=== PATIENT | female | born 1955 | race Asian ===

== ENCOUNTER 2018-08-31 04:41 | Observation (INO) | payer OTHER ==
[2018-08-31] MEDS ORDERED: Albuterol/Ipratropium NEB.SOL* Albuterol 2.5 MG/Ipratropium 0.5 MG 3 ML INH ONE (04:47)
[2018-08-31] MEDS ORDERED: methylPREDNISolone 125 MG* 2 ML VIAL IV ONE (04:48)
[2018-08-31] MEDS ORDERED: Magnesium Sulfate 2 GM IV* 2 GM/50 ML BAG IVPB ONE (04:48)
--- NOTE | 2018-08-31 05:00 | ED ---
Respiratory - HPI Summary HPI Summary: This patient is a 62 year old F brought in by ambulance to [facility] accompanied by a machine welt butter that speaks Czech with a chief complaint of asthma attack that began tonight as she was sleeping on the couch. The patient does not speak any Mohawk and only speaks Czech. The patient rates the pain 10/10 in severity. Patient reports SCHILLING, coughing, myalgia, and rhinorrhea that began 3 days ago. Patient denies fever, chills, CP, and ABD pain. Hx asthma. No medications. photography editor was used. - History of Current Complaint Stated Complaint: SOB Time Seen by Provider: 08/31/18 04:45 Hx Obtained From: Patient, Habilitation Specialist Onset/Duration: Still Present Timing: Constant Initial Severity: Severe Current Severity: Severe Pain Intensity: 10 Character: Cough (Nonproductive) Associated Signs and Symptoms: Negative - fever, chills, CP, and ABD pain - Allergy/Home Medications Allergies/Adverse Reactions: Allergies Allergy/AdvReac Type Severity Reaction Status Date / Time No Known Allergies Allergy Verified 04/30/18 16:59 PMH/Surg Hx/FS Hx/Imm Hx Endocrine/Hematology History: Reports: Hx Diabetes - But states it's no longer a problem, and takes no med for it Cardiovascular History: Reports: Hx Hypertension, Other Cardiovascular Problems/ Disorders - fast heartrate Denies: Hx Cardiac Arrest Respiratory History: Reports: Hx Asthma Comment Only: Other Respiratory Problems/Disorders - DOCTOR WANTS TO LOOK FOR PNEUMONIA GI History: Reports: Other GI Disorders - Pt reports daily heartburn Sensory History: Denies: Hx Contacts or Glasses, Hx Deafness, Hx Hearing Aid Opthamlomology History: Denies: Hx Contacts or Glasses Neurological History: Reports: Hx Headaches, Other Neuro Impairments/Disorders - reports occasional dizziness Psychiatric History: Denies: Hx Oppositional Crane Disorder, Hx Inpatient Treatment Infectious Disease History: No Infectious Disease History: Denies: Hx Hepatitis, Traveled Outside the [place] in Last 30 Days - Family History Known Family History: Positive: Unknown - she has no contact with her family, is unaware of medical issues - Social History Alcohol Use: None Substance Use Type: Reports: None Hx Tobacco Use: Yes Smoking Status (MU): Current Every Day Smoker Type: Cigarettes Amount Used/How Often: 1 cigarette a day Review of Systems Negative: Fever, Chills Positive: Nasal Discharge Negative: Chest Pain Positive: Cough, Other - asthma attack Negative: Abdominal Pain Positive: Myalgia Positive: Headache All Other Systems Reviewed And Are Negative: Yes Physical Exam - Summary Physical Exam Summary: VITAL SIGNS: Reviewed. GENERAL: Patient is a well-developed and nourished female who is lying comfortable in the stretcher. Patient is not in any acute respiratory distress. HEAD AND FACE: No signs of trauma. No ecchymosis, hematomas or skull depressions. No sinus tenderness. EYES: PERRLA, EOMI x 2, No injected conjunctiva, no nystagmus. EARS: Hearing grossly intact. Ear canals and tympanic membranes are within normal limits. MOUTH: Oropharynx within normal limits. NECK: Supple, trachea is midline, no adenopathy, no JVD, no carotid bruit, no c- spine tenderness, neck with full ROM. CHEST: Symmetric, no tenderness at palpation LUNGS:. Bilateral inspiratory and expiratory wheezes CVS: Regular rate and rhythm, S1 and S2 present, no murmurs or gallops appreciated. ABDOMEN: Soft, non-tender. No signs of distention. No rebound no guarding, and no masses palpated. Bowel sounds are normal. EXTREMITIES: FROM in all major joints, no edema, no cyanosis or clubbing. NEURO: Alert and oriented x 3. No acute neurological deficits. Speech is normal and follows commands. SKIN: Dry and warm Triage Information Reviewed: Yes Vital Signs On Initial Exam: Initial Vitals Temp Pulse Resp BP Pulse Ox 98.3 F 95 24 149/91 97 08/31/18 04:43 08/31/18 04:43 08/31/18 04:43 08/31/18 04:43 08/31/18 04:43 Vital Signs Reviewed: Yes Diagnostics - Vital Signs Vital Signs Temp Pulse Resp BP Pulse Ox 08/31/18 04:43 98.3 F 95 24 149/91 97 - Laboratory Result Diagrams: 08/31/18 05:00 08/31/18 05:10 Lab Statement: Any lab studies that have been ordered have been reviewed, and results considered in the medical decision making process. - Radiology CXR Radiology Interpretation Completed By: ED Physician Summary of Radiographic Findings: bilateral interstitial infiltrated consistent with bilateral congestion. Pending official report. - EKG 0449 Cardiac Rate: NL EKG Rhythm: Sinus Rhythm - at 94 BPM Summary of EKG Findings: Normal axis. Normal interval. No ischemic changes Disposition - Course Assessment/Plan: This patient is a 62 year old F brought in by ambulance to [facility] accompanied by a machine welt butter that speaks Czech with a chief complaint of asthma attack that began tonight as she was sleeping on the couch. The patient does not speak any Mohawk and only speaks Czech. The patient rates the pain 10/10 in severity. Patient reports SCHILLING, coughing, myalgia, and rhinorrhea that began 3 days ago. Patient denies fever, chills, CP, and ABD pain. Hx asthma. No medications. An EKG reveals Normal axis. Normal interval. No ischemic changes. CXR reveals, bilateral interstitial infiltrated consistent with bilateral congestion. Pending official report. Blood work obtained. In the ED course the patient was given lasix and breathing treatment. We discussed patient care with Dr. Mendez and he has accepted the patient for admission. Patient will be admission. The patient is agreeable with this plan. - Diagnoses Provider Diagnoses: Asthma - Physician Notifications Discussed Care Of Patient With: Carroll Mendez Time Discussed With Above Provider: 06:04 Instructed by Provider To: Admit As Inpatient Discharge - Sign-Out/Discharge Documenting (check all that apply): Patient Departure - admitted - Discharge Plan Condition: Fair Disposition: ADMITTED TO [facility] Referrals: Blue Lucas MD [Primary Care Provider] - - Attestation Statements Document Initiated by Scribe: Yes Documenting Scribe: Paresh Fontenot Provider For Whom Scribe is Documenting (Include Credential): Kate Lake MD Scribe Attestation: Paresh Valente scribed for Kate Lake MD on 08/31/18 at 0604. Status of Scribe Document: Ready
[2018-08-31] MEDS ORDERED: Albuterol 2.5 MG/3 ML NEB.SOL* (0.083%) INH ONE (05:04)
[2018-08-31] MEDS: Albuterol 2.5 MG/3 ML NEB.SOL* (0.083%) INH SCH ×2 (05:18→05:28)
[2018-08-31 05:25] LABS: ABS Basophils 0.1 10^3/ul (0-0.2); ABS Lymphocytes 3.3 10^3/ul (1.0-4.8); ABS Monocytes 0.9 10^3/ul (0-0.8); ABS Neutrophils 3.1 10^3/ul (1.5-7.7); ABS Nucleated RBC 0 10^3/ul; Eosinophil % 12.3 %; Hematocrit 41 % (35-47); Hemoglobin 13.1 g/dl (12.0-16.0); Lymphocyte % 39.5 %; Mean Corpuscular HGB Conc 32 g/dl (31-36); Mean Corpuscular Hemoglobin 27 pg (27-31); Mean Corpuscular Volume 85 fL (80-97); Mean Platelet Volume 7.9 fL (7.4-10.4); Nucleated Red Blood Cells % 0.1; Platelet Count 263 10^3/ul (150-450); Red Blood Count 4.84 10^6/ul (4.00-5.40); Red Cell Distribution Width 14 % (10.5-15); White Blood Count 8.3 10^3/ul (3.5-10.8)
[2018-08-31 05:33] LABS: Activated Partial Thrombo Time 34.2 seconds (26.0-36.3); INR 0.89 (0.77-1.02)
[2018-08-31] MEDS ORDERED: Furosemide IV* 10 MG/ML VIAL (40 MG) IV ONE (05:37)
[2018-08-31 05:43] LABS: Albumin 3.8 g/dL (3.2-5.2); Albumin/Globulin Ratio 1.2 (1-3); BUN/Creatinine Ratio 12.8 (8-20); C Reactive Protein 4.31 mg/L (<8.01); Calcium 9.3 mg/dL (8.6-10.3); EGFR Non-African American 75.1 (>60); Globulin 3.2 g/dL (2-4); Total Bilirubin 0.4 mg/dL (0.2-1.0)
[2018-08-31] MEDS ORDERED: Albuterol/Ipratropium NEB.SOL* Albuterol 2.5 MG/Ipratropium 0.5 MG 3 ML INH PRN (09:13)
[2018-08-31] MEDS ORDERED: Pneumococcal *Vac Polyvalent 0.5 ML VIAL IM ONE (10:00)
[2018-08-31] MEDS ORDERED: Albuterol/Ipratropium NEB.SOL* Albuterol 2.5 MG/Ipratropium 0.5 MG 3 ML INH SCH (10:00)
[2018-08-31] MEDS: Mometasone/Formoter 200/5 MDI INH SCH ×2 (11:08→19:43)
[2018-08-31] MEDS: PTO: Umeclidinium 62.5 MDI(NF) MDI INH SCH (11:10)
[2018-08-31] MEDS: Azithromycin IV(*) 500 MG in NS 0.9% 250 ML* 250 ML IVPB SCH (11:19)
--- NOTE | 2018-08-31 14:17 | HP ---
HISTORY AND PHYSICAL: DATE OF ADMISSION: 08/31/18 ADMITTING PROVIDER: Bne Jean Baptiste MD PRIMARY CARE PROVIDER: Dr. Ankush Edge. OUTPATIENT DIVERSIFIED CROPS I FARMWORKER: Dr. Blue Lucas. CHIEF COMPLAINT: Shortness of breath, productive cough, body aches, low back pain. HISTORY OF PRESENT ILLNESS: Mayuri Tang is a 62-year-old Kyr[place] female with past medical history significant for asthma (? COPD), who ran out of one of her "blue" inhalers 2 days prior to admission, likely albuterol. She has been complaining of increased shortness of breath and a yellow brownish productive cough for approximately 4 days. She called EMS, was found to be tripoding, was tachypneic; got albuterol and Atrovent inhalers with improved saturations and was presented to the [facility], where she got Solu-Medrol 125, 2mg of magnesium, albuterol, 40mg IV Lasix. She was referred to hospitalist service for suspected acute asthma versus COPD exacerbation. She denies any chest pain. She is a [place] and a video railroad car letterer was used throughout H&P but history was still difficult given her being a poor historian. She denied any fevers, attested to increased body aches in her lower back. She was unable to tell me who her PCP was but through outpatient records, she saw Dr. Edge on 07/08/18, was referred to Dr. Oliva for concern for a skin lesion of the left medial ankle. At that time, she was listed to be on Ventolin 2 puffs every 6 hours, Breo-Ellipta, Incruse Ellipta, ferrous sulfate and docusate. She denies being able to take any pills because she does not have access to them currently. PAST MEDICAL HISTORY: Asthma (?COPD), no PFTs available, current smoker. MEDICATIONS: 1. Incruse Ellipta 62.5 mcg, inhale one puff everyday (in room with her). She is unable to state her other medications but per Dr. Edge's records, they included: 2. Ventolin HFA 108 (90 base) mcg 2 puffs every 6 hours. 3. Breo-Ellipta 200/25 mcg, inhale one puff everyday. 4. ferrous sulfate 325 mg daily (not taken recently) 5. Docusate 100 mg by mouth twice a day (not taken recently) ALLERGIES: No known drug allergies. FAMILY HISTORY: She states that her parents are both , but cannot tell anything more. SOCIAL HISTORY: The patient started smoking at age 8 and at periods of time smokes "heavily" but currently smokes approximately 1 cigarette a day. Denies drug or alcohol use. She lives with her friends, has no family. Previously she was desired to have Jow Markell to be her medical surrogate, though currently I guess they just had a child and may be otherwise indisposed; she desires to be a full code. REVIEW OF SYSTEMS: A complete 14-point review of systems negative except as per HPI. She is complaining of dizziness. Denies any chest pain or abdominal pain. Has a left palm and wrist rash. PHYSICAL EXAMINATION GENERAL APPEARANCE: Initially asleep, lying on hospital bed. VITAL SIGNS: Temperature 98.2; pulse rate 103, currently 98; respiratory rate 24, currently 20; saturating 96% on room air; blood pressure 149/91, currently 125/97. HEENT: Normocephalic, atraumatic. Pupils are equal, round and reactive to light. Extraocular motions intact. No scleral icterus. NECK: Supple. No cervical lymphadenopathy. LUNGS: With expiratory wheezing, no rhonchi or rales. CARDIOVASCULAR: Tachycardic, regular rate. No murmurs, rubs or gallops. ABDOMEN: Soft, slightly distended, nontender. EXTREMITIES: Warm, well perfused. No peripheral edema. SKIN: There is a burn on her left medial distal forearm which is chronic. A silver patch 1.5 cm on her left proximal palm and smaller similar on the left wrist fold. Says these are pruritic. NEUROLOGIC: Moving all extremities. Cranial nerves II through XII intact. DIAGNOSTIC STUDIES/LAB DATA: White count 8.3, hemoglobin 13.1, hematocrit 41, platelets 263. INR 0.89. Sodium 139, potassium 4.0, chloride 105, carbon dioxide 28, BUN 10, creatinine 0.78, glucose 85, lactic acid 0.7, total bili 0.4 , AST 14, ALT 12, alk phos 63. Troponin 0.01, CRP 4.3, BNP 11. Albumin 3.8, total protein 7.0, influenza A and B rapids were both negative. Chest x-ray demonstrated no acute process. EKG normal sinus rhythm, normal axis, no ST elevations or depression. ASSESSMENT AND PLAN: Mayuri Tang is a 62-year-old female, long time smoking, carries a diagnosis of asthma but no PFTs are available. She has likely many pack year, starting at age 8 and current smoking. She presents with productive cough, shortness of breath, wheezing, tachypnea with suspected asthma/COPD exacerbation. She also in the setting of running out of her likely rescue or Breo-Ellipta inhalers for last 3 days. She cannot say who her PCP is but likely Dr. Edge. She is status post 125 mg of Solu-Medrol in the ED, and plan to give again 40 mg again at 1400 and q.12 hours thereafter, putting her on DuoNeb q.4 hours standing and q.2 hours p.r.n., putting her on (due to formulary change) Dulera, and continuing her long-acting anticholinergic Incruse -Ellipta which is in the room with her. We are requesting the records of Dr. Blue Lucas who is listed as her order picker (Recommend getting PFT records if available and should have done as outpatient if not). Put her on azithromycin 500 mg IV (would switch to p.o. as able) for 3 days for suspected likely COPD exacerbation component. Adding procalcitonin. She is otherwise afebrile, no leukocytosis. She will be put on heparin DVT prophylaxis. She can continue on unrestricted diet. She is a full code, otherwise surrogate is for now Geno Guillaume, [phone]. [id number]/[facility] #: [id number] [facility]
[2018-08-31] MEDS: Heparin VIAL(*) 5000 UNITS/ML VIAL (FIVE THOUSAND) SUBCUT SCH ×2 (14:38→21:00)
[2018-08-31] MEDS: Albuterol/Ipratropium NEB.SOL* Albuterol 2.5 MG/Ipratropium 0.5 MG 3 ML INH SCH ×3 (14:45→23:40)
[2018-08-31] MEDS: methylPREDNISolone SOD 40 MG* 1 ML VIAL IV SCH (16:13)
[2018-08-31] MEDS ORDERED: Senna TAB PO PRN (20:08)
[2018-08-31] MEDS ORDERED: Senna TAB ONE (20:56)
[2018-08-31] MEDS ORDERED: Docusate CAP* 100 MG ONE (20:58)
[2018-08-31] MEDS: Docusate CAP* 100 MG PO PRN (21:00)
[2018-09-01] MEDS: Albuterol/Ipratropium NEB.SOL* Albuterol 2.5 MG/Ipratropium 0.5 MG 3 ML INH SCH ×3 (04:00→11:14)
[2018-09-01] MEDS: methylPREDNISolone SOD 40 MG* 1 ML VIAL IV SCH ×2 (04:08→15:52)
[2018-09-01] MEDS: Heparin VIAL(*) 5000 UNITS/ML VIAL (FIVE THOUSAND) SUBCUT SCH ×2 (05:52→14:38)
[2018-09-01] MEDS: Docusate CAP* 100 MG PO PRN (05:52)
[2018-09-01] MEDS: Mometasone/Formoter 200/5 MDI INH SCH (07:17)
[2018-09-01] MEDS: PTO: Umeclidinium 62.5 MDI(NF) MDI INH SCH (07:17)
[2018-09-01] MEDS: Azithromycin IV(*) 500 MG in NS 0.9% 250 ML* 250 ML IVPB SCH (11:08)
[2018-09-01 12:21] VITALS: BP 108/64
[2018-09-01] MEDS ORDERED: Albuterol/Ipratropium NEB.SOL* Albuterol 2.5 MG/Ipratropium 0.5 MG 3 ML INH SCH (13:00)
--- NOTE | 2018-09-01 21:20 | DS ---
CC: Dr. Ankush Edge * DISCHARGE SUMMARY: DATE OF ADMISSION: 08/31/18 DATE OF DISCHARGE: 09/01/18 PRIMARY CARE PROVIDER: Dr. Ankush Edge. ATTENDING PHYSICIAN: Dr. Natalie Brandt * (dictated by Evelyn Villalta NP). PRIMARY DIAGNOSIS: Chronic obstructive pulmonary disease exacerbation. STUDIES WHILE IN THE HOSPITAL: 1. Chest x-ray on 08/31/18 reads as no active cardiopulmonary disease. 2. EKG on 08/31/18 shows normal sinus rhythm with a rate of 94, QTc 451. No ischemic changes. HISTORY OF PRESENT ILLNESS AND HOSPITAL COURSE: Ms. Tang is a 62-year-old female with past medical history of asthma and/or COPD, who presented to the emergency room on 08/31/18 with shortness of breath, cough and body aches. Please see the history and physical by Dr. Jean Baptiste for a complete summary of the events leading up to this hospitalization. The patient reports that she ran out of one of her inhalers at home. It was believed that this was her albuterol inhaler. She had increased shortness of breath with yellow-brown sputum for approximately 4 days. She called EMS and was found to be tachypneic and tripoding. In the emergency room, she was given Solu-Medrol and Lasix. She did have a negative influenza A and influenza B swab. Because of the concern for COPD/asthma exacerbation, the patient was admitted via the hospitalist service. The patient had an uneventful night and as of this morning has been up ambulating around the unit without any oxygen. She is satting 93% while ambulating on room air. We did request records from her previous network solutions architect , although they were not able to be obtained. The patient's respiratory diagnoses are still unknown, although because of the hyperinflation noted on chest x-ray, I think this very likely represents COPD and therefore this would be a COPD exacerbation. She was placed on azithromycin and kept on Solu- Medrol. This morning, lung sounds are diminished throughout. There is no rhonchi or wheezing. She is anxious to return home. I did speak with her family members, who are also understanding of the discharge plan and are in agreement to taking her home. Vital signs have normalized and she has not displayed any further tachypnea or tachycardia. Ms. Tang is stable for discharge today. Vital signs are as follows: Temp 98.1 , heart rate 89, respiratory rate 16, oxygen saturation 93% on room air, blood pressure 108/64. DISCHARGE MEDICATIONS: New medications: 1. Azithromycin 250 mg p.o. daily x3 days. 2. Prednisone 10 mg tabs p.o. taper (take 4 tabs for 3 days, then 3 tabs for 3 days, then 2 tabs for 3 days, then 1 tab for 3 days). Continued medications: 1. Incruse Ellipta 62.5 mcg one puff daily. 2. Albuterol MDI 2 puffs q.6 hours p.r.n. shortness of breath. 3. Docusate 100 mg p.o. b.i.d. 4. Breo Ellipta MDI 200/25 one puff daily. DISCHARGE PLAN: Ms. Tang will be discharged home. Activity will be as tolerated. Diet will be regular as tolerated. I have prescribed her an additional 3 days of azithromycin to complete a total of 5 days of antibiotic therapy. I have also prescribed a 12-day prednisone taper, which she has been instructed to complete per label direction. I did provide her with 2 refills of her albuterol as it sounds as though this exacerbation was brought on by her lack of albuterol. She can continue her other usual medications. As per her family, she does not have a network solutions architect in this area, she had a network solutions architect previously in [place]. I have advised her that she should follow up with her primary care provider in 4 to 7 days and she may benefit from seeing a network solutions architect here in [place]. She has been advised to return to the emergency room or nearest hospital for any worsening of symptoms, shortness of breath, lightheadedness, dizziness, chest discomfort, high fevers, chills, night sweats , loss of consciousness, or any other worrisome signs or symptoms. This is a summarized report of a complex medical history and hospital stay. For further details, please see the entire medical record. TIME SPENT: Approximately 40 minutes was spent on this discharge. EVELYN VILLALTA, EVE [id number]/[facility] #: [id number] JEN
== END 2018-09-01 16:15 | disposition home or self-care (01) ==
LOC: ED 04:41 → SSU 08:02
PROVIDERS: ADMIT Internal Medicine; ATTEND Internal Medicine
DX: J44.1 Chronic obstructive pulmonary disease with (acute) exacerbation (principal); R51 Headache; F17.210 Nicotine dependence, cigarettes, uncomplicated; R06.02 Shortness of breath; R05 Cough; M54.5 Low back pain; R06.2 Wheezing
CPT/HCPCS: 36415; 71045; 80053; 83605; 83880; 84145; 84484; 85025; 85610; 85730; 86140; 86703; 87040; 90471; 90686; 90732; 93005; 94640; 96365; 96366; 96372; 96375; 99284; 99406; A9270-GY; G0008; G0378; J0456; J1644; J1940; J2920; J2930; J3475

== ENCOUNTER 2018-11-07 19:09 | Inpatient (IN) | payer OTHER ==
[2018-11-07] MEDS ORDERED: Albuterol 0.5% CONC NEB.SOL* 5 MG/ML 20 ml BOT INH ONE (19:11)
[2018-11-07] MEDS ORDERED: methylPREDNISolone 125 MG* 2 ML VIAL IV ONE (19:11)
[2018-11-07] MEDS ORDERED: NS 0.9% 1000 ML** 1,000 ML IV ONE (19:11)
--- NOTE | 2018-11-07 19:21 | ED ---
Respiratory - HPI Summary HPI Summary: This patient is a 63 year old F brought in by ambulance to ED accompanied by grandson with a chief complaint of difficulty breathing since 2 weeks ago. The patient only speaks Malaysian and the grandson translates for her. The grandson reports the patient has been having a cold with cough and wheezing for the past two weeks but the difficulty breathing worsened tonight. She has not seen her PCP for her sx. En route, EMS gave a duoneb and the patient reports she felt better since. The patient rates the pain 0/10 in severity. Symptoms aggravated by nothing. Symptoms alleviated by duoneb. Grandson reports non-productive cough. Grandson denies fever. PMHx of asthma (takes albuterol). Patient is an occasional smoker. - History of Current Complaint Stated Complaint: DIFFICULTY BREATHING PER EMS Hx Obtained From: Patient - only speaks Malaysian, Family/Air Brake Man - grandson is building materials sales attendant Onset/Duration: Gradual Onset - cold since 2 weeks ago but worsened tonight, Lasting Weeks, Still Present Timing: Constant Current Severity: None Character: Wheezing, Cough (Nonproductive) Sputum Amount: None Aggravating Factor(s): Nothing Alleviating Factor(s): Oxygen - duoneb given by EMS Associated Signs and Symptoms: SOB, Wheezing - Allergy/Home Medications Allergies/Adverse Reactions: Allergies Allergy/AdvReac Type Severity Reaction Status Date / Time No Known Allergies Allergy Verified 11/07/18 19:46 PMH/Surg Hx/FS Hx/Imm Hx Endocrine/Hematology History: Reports: Hx Diabetes - DX A COUPLE OF YEARS AGO Cardiovascular History: Reports: Hx Hypertension - UNSURE, Other Cardiovascular Problems/Disorders - fast heartrate Denies: Hx Cardiac Arrest Respiratory History: Reports: Hx Asthma, Hx Sleep Apnea - ?, Other Respiratory Problems/Disorders - hilar mass newly found 09/12/18- Denies: Hx Chronic Obstructive Pulmonary Disease (COPD) GI History: Reports: Hx Gastroesophageal Reflux Disease, Other GI Disorders - CONSTIPATION Musculoskeletal History: Reports: Hx Arthritis - KNEE, "CUFF" OF LEG Sensory History: Denies: Hx Contacts or Glasses, Hx Deafness, Hx Hearing Aid Opthamlomology History: Denies: Hx Contacts or Glasses Neurological History: Reports: Hx Headaches, Other Neuro Impairments/Disorders - reports occasional dizziness Psychiatric History: Reports: Hx Anxiety - HX OF -NO MEDICATION FOR Denies: Hx Oppositional [place] Disorder, Hx Inpatient Treatment - Surgical History Surgery Procedure, Year, and Place: EGD-08/2018-WITH SEDATION Hx Anesthesia Reactions: No Infectious Disease History: Denies: Hx Hepatitis, Hx Human Immunodeficiency Virus (HIV), Hx of Known/ Suspected MRSA, Hx Shingles, Hx Tuberculosis, History Other Infectious Disease - Family History Known Family History: Positive: Unknown - she has no contact with her family, is unaware of medical issues - Social History Alcohol Use: None Alcohol Amount: "CONFIRMED ALCOHOLIC"- STOPPED DRINKING >3 YEARS Substance Use Type: Reports: None Hx Tobacco Use: Yes Smoking Status (MU): Former Smoker Type: Cigarettes Amount Used/How Often: 2 ROLLS EACH DAY X 50+ YEARS Have You Smoked in the Last Year: Yes Review of Systems Negative: Fever Positive: Cough - non-productive, Other - wheezing, difficulty breathing All Other Systems Reviewed And Are Negative: Yes Physical Exam - Summary Physical Exam Summary: Appearance: Well-appearing, Well-nourished, lying in bed comfortably, female in moderate respiratory distress Skin: Warm, dry, no obvious rash Eyes: sclera anicteric, no conjunctival pallor ENT: mucous membranes moist, pharynx appears normal Neck: Supple, nontender Respiratory: Clear to auscultation, moderate respiratory distress, diffuse inspiratory and expiratory wheezing with diminished airation. Cardiovascular: Normal S1, S2. No murmurs. Normal distal pulses in tibial and radial bilaterally. Tachycardic but has normal heart sounds. Abdomen: Soft, nontender, normal active bowel sounds present Musculoskeletal: Normal, Strength/ROM Intact Neurological: A&Ox3, awake and alert, mentation is normal, speech is fluent and appropriate Psychiatric: affect is normal, does not appear anxious or depressed Triage Information Reviewed: Yes Vital Signs On Initial Exam: Initial Vitals Pulse Resp BP Pulse Ox 101 27 119/81 100 11/07/18 19:14 11/07/18 19:14 11/07/18 19:14 11/07/18 19:14 Vital Signs Reviewed: Yes Diagnostics - Laboratory Result Diagrams: 11/07/18 19:25 11/07/18 19:25 Lab Statement: Any lab studies that have been ordered have been reviewed, and results considered in the medical decision making process. - Radiology CXR Radiology Interpretation Completed By: ED Physician Summary of Radiographic Findings: No acute processes. Pending radiologist official report. - EKG 1926 Cardiac Rate: Tachycardia - 101 BPM EKG Rhythm: Sinus Tachycardia Summary of EKG Findings: Sinus Tachycardia at 101 BPM, P waves, QRS complex, and T waves are within normal limits, T waves and intervals are normal, no ischemic changes. This is a normal EKG Re-Evaluation - Re-Evaluation First Eval Re-Evaluation Time: 19:35 Change: Unchanged Second Eval Re-Evaluation Time: 20:30 Change: Unchanged Disposition - Course Assessment/Plan: This patient is a 63 year old F presenting to ED accompanied by grandson with a chief complaint of difficulty breathing since 2 weeks ago. In the ED course, the patient was given albuterol, fluids, and solu-medrol. CXR , per ED physician, reveals no acute processes. Sinus Tachycardia at 101 BPM, P waves, QRS complex, and T waves are within normal limits, T waves and intervals are normal, no ischemic changes. This is a normal EKG. Consulted Dr. Grande at 2135 who accepts the patient for admission. - Differential Dx - Cardiopulmonary Differential Diagnoses - Cardiopulmonary: Other - asthma exacerbation - Diagnoses Provider Diagnoses: Asthma exacerbation - Physician Notifications Discussed Care Of Patient With: Mahogany Grande Time Discussed With Above Provider: 21:35 Instructed by Provider To: Admit As Inpatient Discharge - Sign-Out/Discharge Documenting (check all that apply): Patient Departure - admit Patient Received Moderate/Deep Sedation with Procedure: No - Discharge Plan Condition: Good Disposition: ADMITTED TO [facility] - Billing Disposition and Condition Condition: GOOD Disposition: Admitted to [facility] - Attestation Statements Document Initiated by Cielo: Yes Documenting Scribe: Chano Bhat Provider For Whom Cielo is Documenting (Include Credential): Mj Bone MD Scribe Attestation: Chano Valente, scribed for Mj Bone MD on 11/10/18 at 1929. Scribe Documentation Reviewed: Yes Provider Attestation: The documentation as recorded by the Chano hurst accurately reflects the service I personally performed and the decisions made by me, Mj Bone MD Status of Scribe Document: Viewed
[2018-11-07 19:37] LABS: ABS Basophils 0.1 10^3/ul (0-0.2); ABS Eosinophils 0.9 10^3/ul (0-0.6); ABS Lymphocytes 3.8 10^3/ul (1.0-4.8); ABS Monocytes 0.8 10^3/ul (0-0.8); ABS Neutrophils 3.3 10^3/ul (1.5-7.7); ABS Nucleated RBC 0 10^3/ul; Eosinophil % 9.8 %; Hematocrit 40 % (33-41); Lymphocyte % 43.3 %; Mean Corpuscular HGB Conc 32 g/dL (31-36); Mean Corpuscular Hemoglobin 28 pg (27-31); Mean Corpuscular Volume 87 fL (80-97); Mean Platelet Volume 7.8 fL (7.4-10.4); Nucleated Red Blood Cells % 0.1; Platelet Count 247 10^3/uL (150-450); Red Blood Count 4.61 10^6 /uL (3.70-4.87); Red Cell Distribution Width 14 % (10.5-15); White Blood Count 8.8 10^3/uL (3.5-10.8)
[2018-11-07 19:49] LABS: Albumin/Globulin Ratio 1.5 (1-3); BUN/Creatinine Ratio 13.1 (8-20); Calcium 9.5 mg/dL (8.6-10.3); EGFR African American 83.1 (>60); EGFR Non-African American 68.7 (>60); Globulin 2.7 g/dL (2-4); Potassium 3.7 mmol/L (3.5-5.0); Total Bilirubin 0.3 mg/dL (0.2-1.0); Total Protein 6.7 g/dL (6.4-8.9)
[2018-11-07] MEDS ORDERED: Albuterol 0.5% CONC NEB.SOL* 5 MG/ML 20 ml BOT ONE (20:32)
[2018-11-07] MEDS ORDERED: Magnesium Sulfate 2 GM IV* 2 GM/50 ML BAG IVPB ONE (22:05)
[2018-11-07] MEDS ORDERED: Nicotine Inhaler* 10 MG AMP INH PRN (22:10)
[2018-11-07] MEDS ORDERED: Nicotine GUM* 2 MG PO PRN (22:10)
[2018-11-07] MEDS ORDERED: Nicotine Lozenge* 4 MG LOZENGE MT PRN (22:10)
[2018-11-08] MEDS: Enoxaparin(*) 40 MG/0.4 ML SYR SUBCUT SCH (00:34)
[2018-11-08] MEDS: NS 0.9% 1000 ML** 1,000 ML IV SCH ×3 (00:35→16:20)
--- NOTE | 2018-11-08 00:38 | HP ---
HISTORY AND PHYSICAL: DATE OF ADMISSION: 11/07/18 TIME OF ADMISSION: 10 p.m. PRIMARY CARE PHYSICIAN: Dr. Edge. CHIEF COMPLAINT: "Difficulty breathing." HISTORY OF PRESENT ILLNESS: This is a 63-year-old Japanese lady who presents to the emergency department with 2 days of worsening shortness of breath. She speaks no Sinhala, so a Japanese dish stacker, #[id number], was used for the entirety of this interview. She says that 2 days ago she developed gradual onset of shortness of breath that occurred only when she walked and over the past day it has evolved into shortness of breath even at rest. On a good day, she is able to walk without limitation and over the past few days she could not even walk 100 steps without having to stop and rest. She notes a cough with a little bit of phlegm. No fevers, no chest pain. Some chills. She wears no oxygen at home. She has Dr. Edge listed as her PCP; however, she says she does not see any doctors and I note that she has only seen him once ever. She had seen Dr. Nagel in the hospital, but never in the office. She has inhalers at home and she has attempted to use them over the past 2 days without any relief. In the emergency department, when she arrived, she was in respiratory distress and required Vapotherm. However, after nebulizers with Solu-Medrol she is now on 4 L of oxygen. She has no home O2 requirement and never had. PAST MEDICAL HISTORY: 1. COPD. I do not see PFT results; however, her last H and P comments on her PFTs and documents that they showed severe obstruction. However, I cannot find these in [employer] or [employer]. 2. Hypertension. However, she is not on any medications. 3. Hyperlipidemia. However, she is not on any medications. 4. History of a lung mass. She had a bronchoscopy and lymph node sampling in August of 2018, which were negative for malignancy. HOME MEDICATIONS: 1. Albuterol 2 puffs q.6 hours p.r.n. wheezing. 2. Omeprazole 20 mg daily. 3. Incruse Ellipta 1 puff inhaled daily. SOCIAL HISTORY: She smokes half a cigarette per day. She has been smoking since she was a child. She also chews [place] nuts, which has a tobacco derivative. She has no family, but she appoints her roommate, Geno, at [phone], to make decisions for her should she be unable to. REVIEW OF SYSTEMS: As per the HPI, remainder of the 14-point review of systems was negative. PHYSICAL EXAMINATION GENERAL: Alert, well-appearing female, who is in no distress. She was sleeping when I entered the room and awoke to voice. She is able to speak in full sentences; however, she does get dyspneic when she moves around in the bed. No accessory respiratory muscles are in use. VITAL SIGNS: Temperature 98.0, heart rate 120, respiratory rate 20, pulse ox 99 % on 2 L, blood pressure 93/60. HEENT: Pupils equal, round, and reactive to light. Oral mucosa is dry, with no pharyngeal exudates. NECK: No JVP or adenopathy. CHEST: She is tachycardic, with no murmurs. Lungs have diffuse expiratory wheezing and very poor air movement. ABDOMEN: Soft, nontender, and nondistended. She has a small umbilical hernia. No CVA tenderness. EXTREMITIES: No edema, rashes or ulcers. She has no clubbing. LABORATORY DATA: White blood cells 8.8, hemoglobin 13.0, platelets 247. Sodium 141, potassium 3.7, chloride 104, bicarb 31, BUN 11, creatinine 0.84, glucose 114. LFTs are within normal limits. IMAGING: Chest x-ray shows no edema or effusions and no clear infiltrates. EKG: Sinus tachycardia, normal axis, normal intervals, and no ST or T-wave changes. ASSESSMENT AND PLAN: This is a 63-year-old female with history of chronic obstructive pulmonary disease versus asthma, who presents to the emergency department with 2 days of shortness of breath. She arrived in respiratory distress and required Vapotherm and now has been weaned to 2 L of oxygen per minute. 1. Chronic obstructive pulmonary disease exacerbation: Based on her prior history and physical, she has severe obstructive disease and is not necessarily optimized on a home controller medication and has not had good followup with primary care or pulmonology. She has improved in the emergency department with Solu-Medrol and DuoNebs. I am continuing Solu-Medrol, DuoNebs, and adding azithromycin for anti- inflammatory effect though I do not see a clear infectious source. I am consulting Dr. Nagel since she has seen her in the past and needs better follow-through in the outpatient setting with her. She is currently stable on 2 L of oxygen and we will attempt to wean this as able. I am also giving her 2 g of magnesium as she does have some record of asthma listed in her chart. Her PFTs would be helpful in differentiating this, but magnesium can certainly be attempted. 2. History of Lung Mass: I see pathology reports with lymph nodes and BAL that were negative for malignancy, but not a biopsy. She did not follow up outpatient. I am consulting Dr. Nagel to see if she has further recommendations. 3. Tobacco use: She was counseled on cessation. I am giving her an inhaler and gum for while she is here. 4. Questionable history of hypertension: She takes no home antihypertensives and is normotensive here, so I am not sure that this was a true diagnosis. 5. DVT prophylaxis: Lovenox subcutaneously. 5. Diet: Unrestricted. 6. Disposition: Admit to [address] [place] [address], with a Pulmonary consult. [id number]/[facility] #: [id number] JEN
[2018-11-08] MEDS: methylPREDNISolone SOD 40 MG* 1 ML VIAL IV SCH ×5 (00:48→20:46)
[2018-11-08] MEDS: Azithromycin IV(*) 250 MG in NS 0.9% 250 ML* 250 ML IVPB SCH (01:50)
[2018-11-08] MEDS: Al Hydrox/Mg Hydrox/Simet LIQ* 30 ML UDC PO PRN ×2 (04:00→16:21)
[2018-11-08] MEDS: NFT: Umeclidinium 62.5 MDI(NF) MDI INH SCH (08:15)
[2018-11-08] MEDS: Acetaminophen TAB* 325 MG PO PRN ×3 (08:35→20:45)
[2018-11-08] MEDS: Albuterol/Ipratropium NEB.SOL* Albuterol 2.5 MG/Ipratropium 0.5 MG 3 ML INH PRN ×2 (11:05→20:09)
--- NOTE | 2018-11-08 14:58 | PN ---
Subjective Date of Service: 11/08/18 Interval History: Pt admitted overnight.Limited belgian.Reports sob Objective Active Medications: Acetaminophen (Tylenol Tab*) 650 mg PO Q4H PRN PRN Reason: FEVER/PAIN Last Admin: 11/08/18 12:50 Dose: 650 mg Al Hydrox/Mg Hydrox/Simethicone (Maalox Plus*) 30 ml PO Q6H PRN PRN Reason: INDIGESTION Last Admin: 11/08/18 04:00 Dose: 30 ml Albuterol/Ipratropium (Duoneb (Albuterol 2.5 Mg/Ipratropium 0.5 Mg)) 1 neb INH RT.V1GM-WELTE AWAKE PRN PRN Reason: sob/wheexing Last Admin: 11/08/18 11:05 Dose: 1 neb Enoxaparin Sodium (Lovenox(*)) 40 mg SUBCUT Q24H [facility] Last Admin: 11/08/18 00:34 Dose: 40 mg Azithromycin 250 mg/ Sodium (Chloride) 250 mls @ 250 mls/hr IVPB Q24H [facility] Last Admin: 11/08/18 01:50 Dose: 250 mls/hr Sodium Chloride (Ns 0.9% 1000 Ml) 1,000 mls @ 150 mls/hr IV PER RATE [facility] Last Admin: 11/08/18 09:26 Dose: 150 mls/hr Methylprednisolone Sodium Succinate (Solu-Medrol 40 Mg) 40 mg IV 0400,1200, 2000 [facility] Last Admin: 11/08/18 11:27 Dose: 40 mg Nicotine (Nicotine Inhaler*) 10 mg INH Q2H PRN PRN Reason: CRAVING Nicotine Polacrilex (Nicotine Gum*) 2 mg PO Q2H PRN PRN Reason: CRAVING Nicotine Polacrilex (Nicotine Lozenge*) 4 mg MT Q2H PRN PRN Reason: CRAVINGS Pantoprazole Sodium (Protonix Tab*) 40 mg PO DAILY PRN PRN Reason: INDIGESTION Umeclidinium [place] (Incruse Ellipta Mdi (Nf)) 1 inh INH QAM [facility] Last Admin: 11/08/18 08:15 Dose: Not Given Vital Signs - 8 hr 11/08/18 11/08/18 11/08/18 07:39 07:41 07:44 Temperature 98.1 F Pulse Rate 102 Respiratory 24 20 18 Rate Blood Pressure 96/42 (mmHg) O2 Sat by Pulse 100 Oximetry 11/08/18 11/08/18 11:05 11:57 Temperature 98.1 F Pulse Rate 100 82 Respiratory 20 16 Rate Blood Pressure 102/47 (mmHg) O2 Sat by Pulse 98 97 Oximetry Oxygen Devices in Use Now: Nasal Cannula Eyes: No Scleral Icterus Neck: NL Appearance and Movements; NL JVP Respiratory: - - decreased bilateral air entry, scattered wheezes and rhonchi Cardiovascular: NL Sounds; No Murmurs; No JVD, RRR Abdominal: NL Sounds; No Tenderness; No Distention Extremities: No Edema Neurological: Alert and Oriented x 3 Result Diagrams: 11/07/18 19:25 11/07/18 19:25 Assess/Plan/Problems-Billing Assessment: - Patient Problems (1) COPD exacerbation Current Visit: No Status: Acute Priority: High Code(s): J44.1 - CHRONIC OBSTRUCTIVE PULMONARY DISEASE W (ACUTE) EXACERBATION SNOMED Code(s): 324548961 Comment: -Continue Solumedrol, Duoneb,Elipta which she takes at home -O2 -Azithromycin -Dr Dwyer consulted -Mild improvement, admitted overnight (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
[2018-11-08] MEDS: Pantoprazole TAB * 40 MG TAB PO PRN (16:21)
[2018-11-08] MEDS ORDERED: Famotidine IV* 10 MG/ML 2 ML (20 mg) IV SLOW PU ONE (20:19)
[2018-11-08] MEDS ORDERED: Al Hydrox/Mg Hydrox/Simet LIQ* 30 ML UDC PO ONE (20:19)
[2018-11-08] MEDS ORDERED: Pantoprazole IV* 40 MG IV ONE (23:38)
[2018-11-09 00:43] LABS: Troponin I 0.05 ng/mL (<0.04)
[2018-11-09] MEDS: Enoxaparin(*) 40 MG/0.4 ML SYR SUBCUT SCH ×2 (01:02→21:59)
[2018-11-09] MEDS: Sucralfate TAB* 1 GM PO SCH ×5 (01:03→20:02)
[2018-11-09] MEDS: Azithromycin IV(*) 250 MG in NS 0.9% 250 ML* 250 ML IVPB SCH (01:03)
[2018-11-09 03:21] LABS: Troponin I 0.07 ng/mL (<0.04)
[2018-11-09] MEDS: Calcium Carbonate CHEW TAB* 500 MG (TUMS) PO PRN (04:29)
[2018-11-09] MEDS: methylPREDNISolone SOD 40 MG* 1 ML VIAL IV SCH ×3 (04:29→20:02)
[2018-11-09 06:40] LABS: Troponin I 0.12 ng/mL (<0.04)
--- NOTE | 2018-11-09 08:09 | PN ---
Hospitalist Progress Note Date of Service: 11/09/18 HOSPITALIST ADDENDUM Patient had c/o burning chest pain last night. EKG with no acute ischemic changes, but troponin is slightly elevated. S/o Dr Roque.
[2018-11-09] MEDS: Albuterol/Ipratropium NEB.SOL* Albuterol 2.5 MG/Ipratropium 0.5 MG 3 ML INH PRN (08:39)
[2018-11-09] MEDS: NFT: Umeclidinium 62.5 MDI(NF) MDI INH SCH (08:41)
[2018-11-09 09:41] LABS: Troponin I 0.14 ng/mL (<0.04)
[2018-11-09] MEDS ORDERED: Aspirin TAB* 325 MG PO ONE (10:09)
[2018-11-09] MEDS ORDERED: Atorvastatin* 80 MG TAB PO ONE (10:16)
--- NOTE | 2018-11-09 15:54 | ECHO ---
Patient: MICHAEL NAVARRO [facility] Rec#: [id number] : 1955 Date: 11/09/2018 Age: 63y Height: 152 cm / 59.8 in Weight: 60 kg / 132.2 lbs Sex: F BSA: 1.56 Room#: [facility] Admit Date#: 11/07/2018 Type: Inpatient Referring: Alejo Vega MD Reading: Alejo Vega MD Lot Technician: Kristie Gardner [facility] CC: [facility]ENCER[facility] Tr[facility] Ech[facility] Indication: CP BP: 138/72 HR: 73 Rhythm: NSR Findings History: COPD,HTN,HLD,lung mass,smoker. Technical Comments: The study is technically limited due to the patient's smoking history. Completed at 1500. Left Ventricle: The left ventricular chamber size is decreased. Global left ventricular wall motion and contractility are within normal limits. There is normal left ventricular systolic function. The estimated ejection fraction is 55-60%. Left Atrium: The left atrial chamber size is normal. Right Ventricle: The right ventricular cavity size is normal. The right ventricular global systolic function is normal. Right Atrium: The right atrial cavity size is normal. Aortic Valve: The aortic valve is trileaflet. There is no evidence of aortic valve thickening. There is no evidence of aortic regurgitation. There is no evidence of aortic stenosis. Mitral Valve: The mitral valve leaflets are mildly thickened. There is mild mitral regurgitation. There is no evidence of mitral stenosis. Tricuspid Valve: The tricuspid valve leaflets are normal. There is mild to moderate tricuspid regurgitation. There is evidence of mild pulmonary hypertension. There is no tricuspid stenosis. Pulmonic Valve: The pulmonic valve appears normal. There is no evidence of pulmonic regurgitation. There is no pulmonic stenosis. Pericardium: The pericardium appears normal. Aorta: There is no dilatation of the ascending aorta. There is no dilatation of the aortic arch. There is no dilation of the aortic root. Pulmonary Artery: The main pulmonary artery appears normal. Venous: The inferior vena cava appears normal in size. There is a greater than 50% respiratory change in the inferior vena cava dimension. Summary: There are no significant changes when compared to the previous study done on 09/18/18 Conclusions Global left ventricular wall motion and contractility are within normal limits. There is normal left ventricular systolic function. The estimated ejection fraction is 55-60%. The right ventricular global systolic function is normal. There is no evidence of aortic stenosis. There is mild mitral regurgitation. There is mild to moderate tricuspid regurgitation. There is evidence of mild pulmonary hypertension. The pericardium appears normal. Measurements Name Value Normal Range RVIDd (AP) 2D 2.8 cm (0.9 - 2.6) RVDdMajor (2D) 2.7 cm (2.2 - 4.4) RAd ISD 4CH 4.4 cm (3.4 - 4.9) RA (A4C)W 2.6 cm (2.9 - 4.6) IVSd (2D) 0.9 cm (0.6 - 1) LVPWd (2D) 0.9 cm (0.6 - 1) LVIDd (2D) 3.5 cm (3.6 - 5.4) Aortic Annulus 2.6 cm (1.4 - 2.6) Ao root diameter (2D) 2.8 cm (2.1 - 3.5) Ascending Ao 3.1 cm (2.1 - 3.4) Aortic arch 2.6 cm (1.8 - 3.4) Descending Ao 0.7 cm - LAd ISD 4CH 5.5 cm (2.9 - 5.3) LA ISD 4CH W 3.1 cm (2.5 - 4.5) Name Value Normal Range LA ESV SP 4CH (A/L) 25 ml - LA ESV SP 2CH (A/L) 31 ml - Name Value Normal Range MV E-wave Vmax 1.2 m/sec - MV deceleration time 218 msec - MV A-wave Vmax 0.5 m/sec - MV E:A ratio 2.2 ratio - LV septal e' Vmax 0.07 m/sec - LV lateral e' Vmax 0.1 m/sec - LV E:e' septal ratio 17.14 ratio - LV E:e' lateral ratio 12 ratio - Name Value Normal Range AV Vmax 1.7 m/sec - AV VTI 34.2 cm - AV peak gradient 11 mmHg - AV mean gradient 6 mmHg - LVOT Vmax 1.3 m/sec - LVOT VTI 27.1 cm - LVOT peak gradient 7 mmHg - LVOT mean gradient 3 mmHg - Name Value Normal Range TR Vmax 2.9 m/sec - TR peak gradient 33 mmHg - RAP 3 mmHg - RVSP 36 mmHg - IVC diameter 2 cm - Name Value Normal Range PV Vmax 1.1 m/sec - PV peak gradient 5 mmHg -
[2018-11-09] MEDS: Aspirin EC TAB* 81 MG TAB.EC PO SCH (17:06)
--- NOTE | 2018-11-09 17:28 | PN ---
Subjective Interval History: Still pending consult from pulm. Today with audible wheeze on conversation. Pt with burning chest pain overnight, and continues to report this AM. Worse on exertion. Trop increasing, so cardiology consult placed. EKG without concerning changes. Started on ASA and statin. Trop now downtrended 0.14 -> 0.1. TTE without WMA, only with mild MR/TR and evidence of mild pHTN - likely from known severe lung disease. Pt reports to me that she is unable to stick to scheduled f/u appointments because she cannot get rides to clinic. Objective Active Medications: Acetaminophen (Tylenol Tab*) 650 mg PO Q4H PRN PRN Reason: FEVER/PAIN Last Admin: 11/08/18 20:45 Dose: 650 mg Al Hydrox/Mg Hydrox/Simethicone (Maalox Plus*) 30 ml PO Q6H PRN PRN Reason: INDIGESTION Last Admin: 11/08/18 16:21 Dose: 30 ml Albuterol (Ventolin 2.5 Mg/3 Ml Neb.Bridget*) 2.5 mg INH Q2H PRN PRN Reason: SOB/WHEEZING Aspirin (Aspirin Ec Tab*) 81 mg PO DAILY [facility] Last Admin: 11/09/18 17:06 Dose: 81 mg Azithromycin (Zithromax Tab*) 250 mg PO DAILY [facility] Calcium Carbonate (Tums*) 500 mg PO Q4H PRN PRN Reason: HEARTBURN Last Admin: 11/09/18 04:29 Dose: 500 mg Enoxaparin Sodium (Lovenox(*)) 40 mg SUBCUT Q24H [facility] Last Admin: 11/09/18 01:02 Dose: 40 mg Methylprednisolone Sodium Succinate (Solu-Medrol 40 Mg) 40 mg IV 0400,1200, 2000 [facility] Last Admin: 11/09/18 12:16 Dose: 40 mg Nicotine (Nicotine Inhaler*) 10 mg INH Q2H PRN PRN Reason: CRAVING Nicotine Polacrilex (Nicotine Gum*) 2 mg PO Q2H PRN PRN Reason: CRAVING Nicotine Polacrilex (Nicotine Lozenge*) 4 mg MT Q2H PRN PRN Reason: CRAVINGS Pantoprazole Sodium (Protonix Tab*) 40 mg PO DAILY PRN PRN Reason: INDIGESTION Last Admin: 11/08/18 16:21 Dose: 40 mg Sucralfate (Carafate*) 1 gm PO QID [facility] Last Admin: 11/09/18 17:06 Dose: 1 gm Umeclidinium [place] (Incruse Ellipta Mdi (Nf)) 1 inh INH QAM [facility] Last Admin: 11/09/18 08:41 Dose: Not Given Vital Signs - 8 hr 11/09/18 11/09/18 11:45 15:18 Temperature 97.9 F 98.1 F Pulse Rate 69 72 Respiratory 16 16 Rate Blood Pressure 138/72 114/58 (mmHg) O2 Sat by Pulse 100 96 Oximetry Oxygen Devices in Use Now: Nasal Cannula Appearance: comfortable and able to speak in full sentences Respiratory: - - diffuse significant wheeze, auditory wheeze (without stethescope) as well; no accessory muscle use Cardiovascular: RRR Extremities: No Edema Result Diagrams: 11/07/18 19:25 11/07/18 19:25 Assess/Plan/Problems-Billing Assessment: 63W with COPD/asthma presenting with subacute SOB, found with reactive airway exacerbation without evidence of infection. 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 No changes on EKG. Had chest pain 2 months ago as well but ACS work up and CT PE negative at that time. - appreciate cardiology consult - started on ASA and statin
[2018-11-09] MEDS ORDERED: Albuterol 2.5 MG/3 ML NEB.SOL* (0.083%) INH PRN (17:44)
--- NOTE | 2018-11-10 03:28 | CONS ---
PULMONARY CONSULTATION REPORT: DATE OF CONSULT: 11/09/18 CONSULTATION REQUESTED BY: Dr. Mahogany Grande. REASON FOR CONSULT: Evaluation of shortness of breath. HISTORY OF PRESENT ILLNESS: The patient is a Sudanese-speaking female with history of COPD, significant smoking history, known to me from prior inpatient evaluation when she was admitted for shortness of breath and had prolonged hospitalization for continued wheezing and shortness of breath. The patient at that time also found to have prominent right hilum with mass-like lesion. The patient had evaluation with bronchoscopy and then a bronchial ultrasound-guided biopsy of the lymph nodes, which revealed benign pathology. The patient presented to the emergency room for evaluation of worsening shortness of breath. The patient's history was obtained with the help of a Sudanese chef german. The patient reports worsening shortness of breath over the past 2 days prior to the presentation. The patient had significant trouble and decided coming to the emergency room. The patient reports dry cough without much phlegm. Denies fever, chills, or night sweats. Denies chest pain, palpitations, dizziness, loss of weight, or appetite. The patient has been on Incruse and albuterol at home. The patient reported no significant improvement with inhalers. The patient was found to be in respiratory distress upon arrival in the emergency room, required Vapotherm. She was given nebulizers, Solu-Medrol, and was initiated on O2, which was later tapered to 2 L. The patient reports slight improvement in breathing today. Denies significant cough. Denies headaches, urinary complaints, or abdominal issues. PAST MEDICAL HISTORY: 1. COPD. 2. Asthma and allergies, being followed by [facility] Allergy as outpatient. 3. Hypertension. 4. Dyslipidemia. 5. Right hilar mass, biopsy negative for malignancy. HOME MEDICATIONS: 1. Albuterol. 2. Omeprazole. 3. Incruse. SOCIAL HISTORY: Smokes half a pack of cigarettes per day, smoking since she was a child. The patient reports that she has been cutting down now and smoking only a few cigarettes. REVIEW OF SYSTEMS: A 14-point review of systems is negative. PHYSICAL EXAM: GENERAL: The patient in no apparent distress. VITAL SIGNS: Temperature 97.9, pulse 69 beats per minute, respiratory rate 16 per minute, O2 sat 100% on 2 L, blood pressure 138/72. HEENT: Pupils equal, reactive to light. Mucous membranes moist. LUNGS: Diminished air entry bilaterally. Scattered wheeze present bilaterally. CARDIOVASCULAR: S1, S2 present, regular. ABDOMEN: Soft, nontender, nondistended. Bowel sounds present. EXTREMITIES: Normal range of motion, no edema. SKIN: No rash or bruises. NEUROLOGIC: Alert, awake, oriented x3. No focal deficits. DIAGNOSTIC STUDIES/LAB DATA: Chest x-ray on admission was personally reviewed by me - no evidence of airspace opacities noted. There has been improved aeration in the lung woods. Echocardiogram showed normal wall motion contractility and normal ejection fraction, no significant valvular abnormalities, evidence of mild pulmonary hypertension. On EKG, no acute ST-T-wave changes. Labs: WBC 8.8, hemoglobin 13, hematocrit 40, platelet count 247. Sodium 141, potassium 3.7, chloride 104, bicarb 31, BUN 11, creatinine 0.84. LFTs within normal limits. Troponins elevated, have peaked at 0.4 and has been trending down since. The patient has complained of burning chest pain last night, at which time troponins were ordered. IMPRESSION/RECOMMENDATIONS: 63-year-old female with significant smoking history , admitted with acute chronic obstructive pulmonary disease exacerbation. 1. Acute chronic obstructive pulmonary disease exacerbation. 2. Previous history of right hilar mass. The patient's symptoms are improved since admission. She has been feeling well. Diffuse wheezing noted still bilaterally. O2 requirements have come down. She continues to smoke even though she is trying to cut down. Will need to follow up with repeat CT to ensure there is a lesion of previously noted hilar mass. If mass is persistent, might need surgical biopsy. Thank you for allowing me to participate in the care of the your patient. Will follow up with you. [id number]/[facility] #: [id number] JEN
--- NOTE | 2018-11-10 03:28 | CONS ---
CARDIOLOGY CONSULTATION: DATE OF CONSULT: 11/09/18 INDICATION FOR CONSULTATION: Abnormal troponin and chest pain. HISTORY OF PRESENT ILLNESS: The patient is a 63-year-old female with a diagnosis of COPD and hypertension, who was admitted to the hospital on because of increased difficulty breathing. The patient states that she had 2 days of increasing shortness of breath prior to admission to the hospital. She did have a cough, productive of some phlegm. She was admitted to the hospital with a diagnosis of COPD exacerbation and pneumonia. She was placed on antibiotics, She was placed on steroids. Last evening, the patient described an episode of substernal chest pain, lasting for approximately an hour. She was given a nitroglycerin with improvement in her symptoms. This morning her troponin elevated to a peak level of 0.14. Her EKGs had no changes. Today, she has no symptoms. PAST MEDICAL HISTORY: Significant for COPD, hypertension, hyperlipidemia, lung mass which was negative for malignancy. OUTPATIENT MEDICATIONS: 1. Omeprazole 20 mg a day. 2. Albuterol inhaler. 3. Ellipta inhaler. CURRENT MEDICATIONS: 1. Lovenox 40 mg once a day. 2. IV prednisone 40 mg 3 times a day. 3. Nicotine inhaler. 4. Pantoprazole. 5. She was on azithromycin. ALLERGIES: No known drug allergies. SOCIAL HISTORY: She speaks only Moroccan. She smokes half a pack of cigarettes a day. The patient has no immediate family in the area. Unknown what her other social status is. REVIEW OF SYSTEMS: Negative for fevers and chills. Negative for changes in bowel or bladder habits. Negative for change in weight. Other 12-point review is unremarkable except for her pulmonary issues. PHYSICAL EXAM: Height is 5 feet, weight is 131 pounds. Temperature 97.9, heart rate is 70, blood pressure 138/72, respiratory rate is 16, oxygen saturation 99% on 2 L. Sclerae anicteric. Oropharynx is pink without erythema. Carotids are 2+ without bruits. JVD is normal. Thyroid is normal. Cardiac Exam: S1, S2 without any murmurs, rubs or gallops. Lungs have mild rhonchi. There are no rales. There is no dullness to percussion. Abdomen is benign. There are normoactive bowel sounds. Extremities show no edema. She has 2+ pulses throughout. The patient is awake and alert and oriented. She moves all 4 extremities equally. DIAGNOSTIC STUDIES/LAB DATA: Her EKG last night showed normal sinus rhythm with nonspecific T-wave abnormalities, but no ischemic changes. Laboratory Studies: Chemistries within normal limits. AST and ALT are normal. Troponins as described above. CBC within normal limits. An echocardiogram today showed normal LV size and systolic function. No focal wall motion abnormalities. No valvular abnormalities. IMPRESSION: A 63-year-old female who is admitted to the hospital with chronic obstructive pulmonary disease exacerbation. The patient had an episode of chest pain last night. She has a minimally elevated troponin level today. Today, she has no cardiac symptoms. The patient's other laboratory studies are within normal limits. Her echocardiogram shows no focal wall motion abnormalities. Her EKG shows no obvious ischemic changes. It is unclear what caused the elevation of her troponin and her chest pain. PLAN/RECOMMENDATIONS: The patient will undergo a chemical nuclear stress test in the morning for further evaluation. The patient was started on an aspirin in the day. Her other medications remain the same. [id number]/[facility] #: [id number] [facility]
[2018-11-10] MEDS: methylPREDNISolone SOD 40 MG* 1 ML VIAL IV SCH ×2 (03:56→13:22)
[2018-11-10] MEDS: NFT: Umeclidinium 62.5 MDI(NF) MDI INH SCH (07:01)
[2018-11-10] MEDS ORDERED: Azithromycin TAB* 250 MG PO SCH (09:00)
[2018-11-10] MEDS ORDERED: Regadenoson* 0.4 MG/5 ML SYRINGE ONE (10:24)
[2018-11-10] MEDS: Sucralfate TAB* 1 GM PO SCH ×3 (10:49→17:34)
[2018-11-10] MEDS: Aspirin EC TAB* 81 MG TAB.EC PO SCH (10:53)
--- NOTE | 2018-11-10 13:03 | PN ---
Progress Note - Progress Note Date of Service: 11/10/18 - Pulm f/u note Note: Pt seen and examined at bedside. Pt reports feeling slightly better. Has intermittent cough Active Medications Generic Name Dose Route Start Last Admin Trade Name Freq PRN Reason Stop Dose Admin Acetaminophen 650 mg 11/07/18 22:05 11/08/18 20:45 Tylenol Tab* PO 650 mg Q4H PRN Administration FEVER/PAIN Al Hydrox/Mg Hydrox/Simethicone 30 ml 11/07/18 22:05 11/08/18 16:21 Maalox Plus* PO 30 ml Q6H PRN Administration INDIGESTION Albuterol 2.5 mg 11/09/18 17:44 Ventolin 2.5 Mg/3 Ml Neb.Bridget* INH Q2H PRN SOB/WHEEZING Aspirin 81 mg 11/09/18 17:00 11/10/18 10:53 Aspirin Ec Tab* PO 81 mg DAILY FRANCISCA Administration Azithromycin 250 mg 11/10/18 09:00 11/10/18 10:53 Zithromax Tab* PO 250 mg DAILY FRANCISCA Administration Calcium Carbonate 500 mg 11/08/18 23:38 11/09/18 04:29 Tums* PO 500 mg Q4H PRN Administration HEARTBURN Enoxaparin Sodium 40 mg 11/07/18 23:00 11/09/18 21:59 Lovenox(*) SUBCUT 40 mg Q24H FRANCISCA Administration Methylprednisolone Sodium Succinate 40 mg 11/08/18 04:00 11/10/18 03:56 Solu-Medrol 40 Mg IV 40 mg 0400,1200,2000 FRANCISCA Administration Nicotine 10 mg 11/07/18 22:10 Nicotine Inhaler* INH Q2H PRN CRAVING Nicotine Polacrilex 2 mg 11/07/18 22:10 Nicotine Gum* PO Q2H PRN CRAVING Nicotine Polacrilex 4 mg 11/07/18 22:10 Nicotine Lozenge* MT Q2H PRN CRAVINGS Pantoprazole Sodium 40 mg 11/07/18 22:07 11/08/18 16:21 Protonix Tab* PO 40 mg DAILY PRN Administration INDIGESTION Sucralfate 1 gm 11/08/18 23:45 11/10/18 10:49 Carafate* PO Not Given QID [facility] Umeclidinium [place] 1 inh 11/08/18 09:00 11/10/18 07:01 Incruse Ellipta Mdi (Nf) INH Not Given QAM FRANCISCA Vital Signs Temp Pulse Resp BP Pulse Ox 98.6 F 72 20 132/90 97 11/10/18 11:29 11/10/18 11:29 11/10/18 12:01 11/10/18 11:29 11/10/18 11:29 O/E: Pt in NAD HEENT: PERRLA, no JVD Lungs: Dimnished air entry b/l, scaterred wheeze+ CVS:S1, S2+, regular Abd: Soft, BS+ Ext: No edema Skin: No rash Neuro: Alert,awake,no focal deficits Laboratory Results - last 24 hr 11/09/18 12:29 Troponin I 0.10 H* I/R: 63y o cook islander speaking f with COPD/asthma presenting with SOB, sec to acute COPD/asthma exacerbation Improving, less wheeze c/w bronchodilators c/w steroid taper Smoking cessation reenforced Can d/c abx Will obtain CT chest to evaluate previously noted rt hilar mass lesion which was evaluated with bronchoscopy in the past Planned for f/u as out pt initially however concern with pt keeping f/u appointment She didnot f/u as instructed in past
--- NOTE | 2018-11-10 17:17 | PN ---
Subjective Interval History: Nuclear stress this AM with reversible change involving the anterior septal wall and inferior lateral wall of moderate size. Deemed low risk. Pt now off supplemental O2. Feels better. Care team to explain to patient how to call transportation to appointments. Objective Active Medications: Acetaminophen (Tylenol Tab*) 650 mg PO Q4H PRN PRN Reason: FEVER/PAIN Last Admin: 11/08/18 20:45 Dose: 650 mg Al Hydrox/Mg Hydrox/Simethicone (Maalox Plus*) 30 ml PO Q6H PRN PRN Reason: INDIGESTION Last Admin: 11/08/18 16:21 Dose: 30 ml Albuterol (Ventolin 2.5 Mg/3 Ml Neb.Bridget*) 2.5 mg INH Q2H PRN PRN Reason: SOB/WHEEZING Aspirin (Aspirin Ec Tab*) 81 mg PO DAILY [facility] Last Admin: 11/10/18 10:53 Dose: 81 mg Calcium Carbonate (Tums*) 500 mg PO Q4H PRN PRN Reason: HEARTBURN Last Admin: 11/09/18 04:29 Dose: 500 mg Enoxaparin Sodium (Lovenox(*)) 40 mg SUBCUT Q24H [facility] Last Admin: 11/09/18 21:59 Dose: 40 mg Nicotine (Nicotine Inhaler*) 10 mg INH Q2H PRN PRN Reason: CRAVING Nicotine Polacrilex (Nicotine Gum*) 2 mg PO Q2H PRN PRN Reason: CRAVING Nicotine Polacrilex (Nicotine Lozenge*) 4 mg MT Q2H PRN PRN Reason: CRAVINGS Pantoprazole Sodium (Protonix Tab*) 40 mg PO DAILY PRN PRN Reason: INDIGESTION Last Admin: 11/08/18 16:21 Dose: 40 mg Prednisone (Deltasone Tab*) 40 mg PO DAILY [facility] Sucralfate (Carafate*) 1 gm PO QID [facility] Last Admin: 11/10/18 13:22 Dose: 1 gm Umeclidinium [place] (Incruse Ellipta Mdi (Nf)) 1 inh INH QAM [facility] Last Admin: 11/10/18 07:01 Dose: Not Given Vital Signs - 8 hr 11/10/18 11/10/18 11/10/18 11:29 12:01 16:20 Temperature 98.6 F 98.8 F Pulse Rate 72 59 Respiratory 20 18 18 Rate Blood Pressure 132/90 123/73 (mmHg) O2 Sat by Pulse 97 95 Oximetry Oxygen Devices in Use Now: None Appearance: sleeping comfortable on side Ears/Nose/Mouth/Throat: Mucous Membranes Moist Respiratory: - - diffuse wheeze improved but present Cardiovascular: RRR Extremities: No Edema Result Diagrams: 11/07/18 19:25 11/07/18 19:25 Assess/Plan/Problems-Billing Assessment: 63W with COPD/asthma presenting with subacute SOB, found with reactive airway exacerbation without evidence of infection. 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 No changes on EKG. Nuclear stress low risk. - appreciate cardiology consult - started on ASA and statin Status and Disposition: Inpatient medical floors. May DC tomorrow AM.
[2018-11-10] MEDS ORDERED: Iodixanol* (CONTRAST) 320 MG/ML 100 ML SDV IV ONE (17:23)
[2018-11-10] MEDS: Pantoprazole TAB * 40 MG TAB PO PRN (20:00)
[2018-11-10] MEDS: Acetaminophen TAB* 325 MG PO PRN (20:00)
[2018-11-10] MEDS: Enoxaparin(*) 40 MG/0.4 ML SYR SUBCUT SCH (21:15)
[2018-11-10] MEDS: Calcium Carbonate CHEW TAB* 500 MG (TUMS) PO PRN (21:21)
[2018-11-11] MEDS ORDERED: diPHENhydraMINE PO* 25 MG PO PRN (05:50)
[2018-11-11] MEDS ORDERED: diPHENhydraMINE PO* 25 MG ONE (05:57)
[2018-11-11] MEDS: NFT: Umeclidinium 62.5 MDI(NF) MDI INH SCH (07:20)
[2018-11-11 07:29] VITALS: BP 119/86
[2018-11-11] MEDS ORDERED: predniSONE TAB* 20 MG PO SCH (09:00)
[2018-11-11] MEDS: Aspirin EC TAB* 81 MG TAB.EC PO SCH (09:14)
--- NOTE | 2018-11-11 12:17 | PN ---
Progress Note - Progress Note Date of Service: 11/11/18 - Pulm f/u note Note: Pt seen and examined at bedside with help of counter clerk tractor parts through internet phone line. Pt reports feeling better. SOB,cough is improved. Active Medications Generic Name Dose Route Start Last Admin Trade Name Freq PRN Reason Stop Dose Admin Acetaminophen 650 mg 11/07/18 22:05 11/10/18 20:00 Tylenol Tab* PO 650 mg Q4H PRN Administration FEVER/PAIN Al Hydrox/Mg Hydrox/Simethicone 30 ml 11/07/18 22:05 11/08/18 16:21 Maalox Plus* PO 30 ml Q6H PRN Administration INDIGESTION Albuterol 2.5 mg 11/09/18 17:44 Ventolin 2.5 Mg/3 Ml Neb.Bridget* INH Q2H PRN SOB/WHEEZING Aspirin 81 mg 11/09/18 17:00 11/11/18 09:14 Aspirin Ec Tab* PO 81 mg DAILY FRANCISCA Administration Calcium Carbonate 500 mg 11/08/18 23:38 11/10/18 21:21 Tums* PO 500 mg Q4H PRN Administration HEARTBURN Diphenhydramine HCl 25 mg 11/11/18 05:50 11/11/18 06:13 Benadryl Po* PO 25 mg ONCE PRN Administration ITCHING Enoxaparin Sodium 40 mg 11/07/18 23:00 11/10/18 21:15 Lovenox(*) SUBCUT 40 mg Q24H FRANCISCA Administration Nicotine 10 mg 11/07/18 22:10 Nicotine Inhaler* INH Q2H PRN CRAVING Nicotine Polacrilex 2 mg 11/07/18 22:10 Nicotine Gum* PO Q2H PRN CRAVING Nicotine Polacrilex 4 mg 11/07/18 22:10 Nicotine Lozenge* MT Q2H PRN CRAVINGS Pantoprazole Sodium 40 mg 11/07/18 22:07 11/10/18 20:00 Protonix Tab* PO 40 mg DAILY PRN Administration INDIGESTION Prednisone 40 mg 11/11/18 09:00 11/11/18 09:14 Deltasone Tab* PO 40 mg DAILY FRANCISCA Administration Umeclidinium [place] 1 inh 11/08/18 09:00 11/11/18 07:20 Incruse Ellipta Mdi (Nf) INH Not Given QAM FRANCISCA Vital Signs Temp Pulse Resp BP Pulse Ox 97.4 F 65 18 119/86 95 11/11/18 07:28 11/11/18 07:28 11/11/18 09:23 11/11/18 07:28 11/11/18 07:28 O/E: Pt in NAD, sitting up in bed HEENT: PERRLA, no JVD Lungs: Improved air entry b/l, minimal wheeze+ CVS:S1, S2+, regular Abd: Soft, BS+ Ext: No edema Skin: No rash Neuro: Alert,awake,no focal deficits Laboratory Results - last 48 hr 11/09/18 12:29 Troponin I 0.10 H* I/R: 63y o Salvadorean speaking f with COPD/asthma presenting with SOB, sec to acute COPD/asthma exacerbation Improved, lungs sound much better CT chest reviewed personally and with pt today- No acute abnormalities noted, resolution of hilar mass c/w bronchodilators c/w steroid taper Smoking cessation reenforced Can d/c abx Will f/u as out pt For d/c today
--- NOTE | 2018-11-11 15:53 | DS ---
CC: Dr. Blue Lucas; Dr. Nagel; Dr. Vega; Dr. Edge * DISCHARGE SUMMARY: DATE OF ADMISSION: 11/07/18 DATE OF DISCHARGE: 11/11/18 PRIMARY CARE PROVIDER: Dr. Blue Lucas or Dr. Edge. DISPOSITION: To home. CONDITION: Good. PRIMARY DIAGNOSIS: Chronic obstructive pulmonary disease exacerbation. CONSULTS: Pulmonology, Dr. Nagel; Cardiology, Dr. Vega. PROCEDURES: Nuclear stress test. PERTINENT STUDIES: Myocardial perfusion scan showing reversible change involving the anterior septal wall and inferior lateral wall of moderate size with normal ejection fraction. Assessment read as low risk. Chest CT, 11/10/18, showing normal lungs without masses and otherwise no acute findings. Transthoracic echocardiogram showed global LV wall motion and contractility within normal limits, normal LV systolic function with EF 55% to 60%, RV systolic function normal, mild MR and TR, evidence of mild pulmonary hypertension. HISTORY OF PRESENT ILLNESS: A 63-year-old Mexican woman with history of COPD, hypertension, hyperlipidemia, presenting to the emergency department with subacute shortness of breath. Shortness of breath came on gradually and was worse on ambulation and eventually progressed to shortness of breath at rest. Given significantly decreased exercise tolerance, she presented to the emergency room for further evaluation. HOSPITAL COURSE: In the emergency department, she was in respiratory distress and required high-flow nasal cannula. After nebulizers and IV steroids, she was able to transition to 4 L of nasal cannula oxygen. The patient was given extensive education on smoking cessation as this is thought to likely have contributed to her COPD exacerbation. She also was known to have poor followup with her outpatient providers, and she explained this is because she at times is unable to find rides to her appointments. Before discharge, she was educated that she can have rides to clinic appointments covered by insurance and she was given instructions on how to do so. On day 3 of admission, she did have complaints of epigastric and substernal pain that was worse on exertion. She had no significant EKG changes during that time, but had a newly elevated troponin, which peaked at 0.14, so she was started on aspirin and a statin. Cardiology saw and evaluated the patient and ordered a nuclear stress test, which resulted with very low risk and the patient's symptoms resolved spontaneously. By day of discharge, she was no longer having limiting symptoms of dyspnea. She had denied chest pain or epigastric pain. She had been off of supplemental oxygen for over 24 hours. Otherwise, 10-point review of systems was negative. PHYSICAL EXAMINATION: She remained afebrile. Her heart rate 65, blood pressure 119/86, and SaO2 on room air 95%. In general, she was a well- appearing woman, initially lying flat on side, resting comfortably, in no acute distress. Heart: Regular rate and rhythm. No murmurs, gallops, or rubs. Respiratory: No use of accessory muscles noted with auscultation revealing improved air entry bilaterally with a minimal diffuse expiratory wheeze. Abdomen: Soft, nontender, nondistended. Lower Extremities: Warm, well perfused without edema. DISCHARGE PLAN: She is to follow up closely with her primary care physician. She can resume all home medications with the addition of a steroid taper. She was counseled extensively on smoking cessation. Her only new medication is aspirin given her increased risk of coronary artery disease. DISCHARGE MEDICATIONS: 1. Prednisone 40 mg for 1 day, 30 mg for 2 days, 20 mg for 2 days, 10 mg for 2 days. 2. Incruse Ellipta 1 puff inhaled daily. 3. Albuterol 2 puffs inhaled q.6 hours p.r.n. shortness of breath, wheeze. 4. Aspirin 81 mg daily. 5. Omeprazole 20 mg daily. 6. Nicotine gum 2 mg every 2 hours as needed for cravings. She was given return precautions and instructed to resume a healthy diet with a level of activity as tolerated. All her questions were answered on day of discharge with a Mexican invisible braces orthodontist. TIME SPENT: Approximately 60 minutes spent on discharge of this patient, more than half of which was spent with care coordination or at the bedside for interview and exam. [id number]/[facility] #: [id number] JEN
== END 2018-11-11 14:30 | disposition home or self-care (01) | DRG 140 ==
LOC: ED 19:09 → MED 22:05 → ED 23:05
PROVIDERS: ADMIT Internal Medicine; ATTEND Internal Medicine
DX: J44.1 Chronic obstructive pulmonary disease with (acute) exacerbation (principal); I10 Essential (primary) hypertension; E78.5 Hyperlipidemia, unspecified; F17.210 Nicotine dependence, cigarettes, uncomplicated; R74.8 Abnormal levels of other serum enzymes; K42.9 Umbilical hernia without obstruction or gangrene; R06.03 Acute respiratory distress; R07.9 Chest pain, unspecified; D38.1 Neoplasm of uncertain behavior of trachea, bronchus and lung; I08.1 Rheumatic disorders of both mitral and tricuspid valves; Z79.51 Long term (current) use of inhaled steroids; Z79.899 Other long term (current) drug therapy
CPT/HCPCS: 36415; 71045; 71260; 78452; 80053; 83036; 84484; 85025; 93005; 93017; 93306; 94640; 99285; A9270-GY; A9502; J0456; J1650; J2785; J2920; J2930; J3475; J7512; J7611; Q9967